=== PATIENT | male | born 1995 | race Caucasian/White ===

== ENCOUNTER 2016-09-28 05:23 | Day surgery (SDC) | payer OTHER ==
[~2016-09-28] VITALS: Ht 182.9 cm; Wt 83.5 kg
--- NOTE | ~2016-09-28 | O ---
[facility] [place] [address] OPERATIVE REPORT Name: BOUBACAR BENNETT Room #: 150-11 [facility] M.R.#: [id number] Admission: 09/28/16 Attend Phys: Ace Reyez MD Discharge: Date of : 89 Report #: [id number] THIS REPORT FOR: //name// CC: Reuben Mena DATE OF SERVICE: 09/28/2016 PREOPERATIVE DIAGNOSIS: Left knee medial meniscus bucket-handle tear. POSTOPERATIVE DIAGNOSIS: Left knee medial meniscus bucket-handle tear. PROCEDURE: Left knee arthroscopy and medial meniscus repair. Surgeon: Ace Reyez MD [employer] MATERIAL INSPECTOR: Kvng Cain, nurse practitioner. INDICATIONS FOR [employer] MATERIAL INSPECTOR: During the course of operation, extensive manipulation, retraction and limb positioning was required, as well as suture management. This was afforded to me by my assistant professor of criminal justice. ANESTHETIC: General. INDICATIONS: See hospital H and P. DESCRIPTION OF PROCEDURE: After adequate general anesthesia had been obtained, the patient's left lower extremity was prepped and draped in the usual meticulous sterile fashion. Limb was exsanguinated with gravity, tourniquet inflated to 300 torr. Superomedial portal was established by first infiltrated with 0.5% Naropin, then making a stab incision with 11 blade. Inflow cannula placed. Knee was insufflated with fluid. Anterolateral and anteromedial portals were established utilizing the same technique. Complete diagnostic arthroscopy was performed. Medial compartment demonstrated a bucket-handle tear of the meniscus with displacement of the intercondylar notch, it was reducible. The meniscus was in reasonably good condition; however, the tear was in the red-white zone. I did use a rasp to roughen the synovium surrounding the tear and this did elicit some bleeding. The cruciate ligaments were intact. Lateral compartment, normal. Patellofemoral compartment, normal. At this time, a fast fix was utilized posteriorly to maintain the reduction of the meniscus. I then trephinated the MCL and put the gentle pressure to open the joint to allow access with the NovoStitch device. This device was then used [facility] [address] [place] [address] OPERATIVE REPORT Name: BOUBACAR BENNETT Room #: 150-11 [facility] M.R.#: [id number] Admission: 09/28/16 Attend Phys: Ace Reyez MD Discharge: Date of : 89 Report #: [id number] to pass the five sutures, all vertical mattress sutures with excellent reapproximation of the meniscus. The anterior most portion of the tear was not accessible with the device and so I elected to make a small incision and do an outside-in repair to area, 2-0 Vicryl suture was passed though spinal needle, tied together and pulled retrograde and then tied over the capsule with good reapproximation of the anterior portion of the tear. The knee was then irrigated copiously. The portals were all closed with 4-0 nylon. Sterile compressive dressing applied. Tourniquet deflated. By: [id number] Ace Reyez MD /nt
[2016-09-28 14:24] VITALS: BP 134/73
[2016-09-28 17:47] VITALS: BP 134/73
== END 2016-09-28 18:00 | disposition home or self-care (01) ==
LOC: TBA 05:23 → OR 05:23
DX: S83.212A Bucket-handle tear of medial meniscus, current injury, left knee, initial encounter (principal); X58.XXXA Exposure to other specified factors, initial encounter; Y93.89 Activity, other specified; Y92.89 Other specified places as the place of occurrence of the external cause; Y99.8 Other external cause status; Z98.890 Other specified postprocedural states
CPT/HCPCS: 50010; 50101; 50405; 50612; 50717; 51038; 53337; 54170; 55430; 56524; 56525; 56526; 62110; 62900; 70005